=== PATIENT | male | born 1985 | race Two or more races ===

== ENCOUNTER 2018-10-20 22:56 | Emergency (ER) | payer SELFPAY ==
[~2018-10-20] VITALS: Ht 170.2 cm; Wt 81.8 kg
[2018-10-20] MEDS ORDERED: ALBU8HFA IH (23:11)
[2018-10-20] MEDS ORDERED: METF-960 PO (23:11)
[2018-10-20 23:27] LABS: GLUCOSE,POINT OF CARE 98 MG/DL (70-110)
[2018-10-20] MEDS ORDERED: KETOROLAC TROMETHAMINE 30 MG/ML VIAL IVP ONE (23:45)
[2018-10-20 23:51] LABS: BASOPHILS % (AUTO) 0.3 % (0.0-2.0); HEMATOCRIT 41.8 % (41-53); HEMOGLOBIN 13.6 g/dL (13.5-17.5); LYMPHOCYTES # (AUTO) 2.6 K/uL (1.0-4.8); LYMPHOCYTES % (AUTO) 30.5 % (22.0-44.0); MEAN CORPUSCULAR HGB CONC 32.7 G/dL (31.0-37.0); MEAN CORPUSCULAR VOLUME 92 fL (80-100); MONOCYTES # (AUTO) 0.6 K/uL (0.1-1.0); MONOCYTES % (AUTO) 6.4 % (2.0-9.0); NEUTROPHILS # (AUTO) 5.4 K/uL (1.8-7.7); NEUTROPHILS % (AUTO) 61.8 % (40.0-70.0); PLATELET COUNT (AUTO) 174 K/uL (150-450); RED BLOOD CELL COUNT(AUTO) 4.55 MIL/uL (4.50-5.90); RED CELL DISTRIBUTION WIDTH 13.9 % (11.5-14.5)
[2018-10-21 00:02] LABS: ANION GAP 9 mmol/L (8-16); CALCIUM, TOTAL 8.9 mg/dL (8.8-10.5); CARBON DIOXIDE 28 mmol/L (22-29); CHLORIDE 106 mmol/L (98-107); CREATININE 0.84 mg/dL (0.60-1.30); GLOMERULAR FILTR. RATE CALC > 60 mL/min (>60); GLUCOSE,RANDOM 114 mg/dL (70-110); POTASSIUM 4.4 mmol/L (3.5-5.1); SODIUM SERUM 143 mmol/L (136-145); UREA NITROGEN, BLOOD 13 mg/dL (7-18)
[2018-10-21 00:08] LABS: ALANINE AMINOTRANSFERASE 31 U/L (12-78); ALBUMIN 3.9 g/dL (3.4-5.0); ALKALINE PHOSPHATASE 65 U/L (46-116); ASPARTATE AMINOTRANSFERASE 24 U/L (15-37); BILIRUBIN,TOTAL 0.9 mg/dL (0.1-1.0); TOTAL PROTEIN, SERUM 7.1 g/dL (6.4-8.2)
[2018-10-21 00:12] LABS: LACTIC ACID 2.6 mmol/L (0.4-2.0)
[2018-10-21] MEDS ORDERED: SODIUM CHLORIDE 0.9% 1,000 ML IV ONE (00:45)
[2018-10-21] MEDS ORDERED: BARIUM SULFATE 0.1% SUSPENSION 450 ML BOTTLE PO ONE (00:45)
[2018-10-21] MEDS ORDERED: SODIUM CHLORIDE 0.9% 100 ML ONE (00:57)
[2018-10-21] MEDS ORDERED: IOVERSOL 320 MG/ML 100 ML VIAL ONE (00:57)
[2018-10-21] MEDS ORDERED: ONDANSETRON HCL 4 MG/2 ML VIAL IVP ONE (01:15)
[2018-10-21 01:50] VITALS: BP 128/82
== END 2018-10-21 03:24 | disposition home or self-care (01) ==
LOC: EMS 22:59
DX: N50.812 Left testicular pain (principal); J45.909 Unspecified asthma, uncomplicated; E11.9 Type 2 diabetes mellitus without complications; F17.210 Nicotine dependence, cigarettes, uncomplicated; Z79.84 Long term (current) use of oral hypoglycemic drugs
CPT/HCPCS: 36415; 74177; 76870; 80053; 82962; 83605; 85025; 96374; 96375; 99284; J1885; J2405; J7050; Q9967

== ENCOUNTER 2018-10-24 00:11 | Emergency (ER) | payer SELFPAY ==
[~2018-10-24] VITALS: Ht 170.2 cm; Wt 81.8 kg
[~2018-10-24 00:11] MED LIST: ALBU8HFA IH; METF-960 PO
[2018-10-24 01:01] LABS: GLUCOSE,POINT OF CARE 111 MG/DL (70-110)
[2018-10-24 02:57] LABS: APPEARANCE,URINE CLEAR (CLEAR); BILIRUBIN,URINE NEGATIVE (NEGATIVE); GLUCOSE, URINE (UA) NEGATIVE (NEGATIVE); KETONES,URINE NEGATIVE (NEGATIVE); LEUKOCYTE ESTERASE ,URINE NEGATIVE (NEGATIVE); NITRATE,URINE NEGATIVE (NEGATIVE); OCCULT BLOOD,URINE NEGATIVE (NEGATIVE); PH,URINE 6.5 (5.0-8.0); PROTEIN,URINE NEGATIVE (NEGATIVE)
[2018-10-24] MEDS ORDERED: KETOROLAC TROMETHAMINE 30 MG/ML VIAL IM ONE (03:45)
[2018-10-24 04:52] VITALS: BP 128/88
== END 2018-10-24 04:53 | disposition home or self-care (01) ==
LOC: EMS 00:12
DX: I86.1 Scrotal varices (principal); E11.9 Type 2 diabetes mellitus without complications; J45.909 Unspecified asthma, uncomplicated; F17.210 Nicotine dependence, cigarettes, uncomplicated; Z79.84 Long term (current) use of oral hypoglycemic drugs
CPT/HCPCS: 76870; 81003; 82962; 96372; 99284; J1885

== ENCOUNTER 2018-11-01 00:15 | Emergency (ER) | payer SELFPAY ==
[~2018-11-01] VITALS: Ht 170.2 cm; Wt 86.4 kg
[2018-11-01 01:05] LABS: GLUCOSE,POINT OF CARE 96 MG/DL (70-110)
[2018-11-01] MEDS ORDERED: MECLIZINE HCL 25 MG TABLET PO ONE (01:15)
[2018-11-01] MEDS ORDERED: SODIUM CHLORIDE 0.9% 1,000 ML IV ONE ×2 (01:15→02:15)
[2018-11-01 01:33] LABS: BASOPHILS % (AUTO) 0.3 % (0.0-2.0); EOSINOPHILS % (AUTO) 1.1 % (1.0-6.0); HEMATOCRIT 39.8 % (41-53); HEMOGLOBIN 12.9 g/dL (13.5-17.5); LYMPHOCYTES # (AUTO) 3.4 K/uL (1.0-4.8); LYMPHOCYTES % (AUTO) 44.4 % (22.0-44.0); MEAN CORPUSCULAR HEMOGLOBIN 29.4 pg (26.0-34.0); MEAN CORPUSCULAR HGB CONC 32.3 G/dL (31.0-37.0); MEAN CORPUSCULAR VOLUME 91 fL (80-100); MONOCYTES # (AUTO) 0.6 K/uL (0.1-1.0); MONOCYTES % (AUTO) 7.5 % (2.0-9.0); NEUTROPHILS # (AUTO) 3.6 K/uL (1.8-7.7); NEUTROPHILS % (AUTO) 46.7 % (40.0-70.0); PLATELET COUNT (AUTO) 184 K/uL (150-450); RED BLOOD CELL COUNT(AUTO) 4.37 MIL/uL (4.50-5.90)
[2018-11-01 01:43] LABS: ANION GAP 6 mmol/L (8-16); CALCIUM, TOTAL 8.7 mg/dL (8.8-10.5); CARBON DIOXIDE 28 mmol/L (22-29); CHLORIDE 105 mmol/L (98-107); CREATININE 0.93 mg/dL (0.60-1.30); GLOMERULAR FILTR. RATE CALC > 60 mL/min (>60); GLUCOSE,RANDOM 103 mg/dL (70-110); SODIUM SERUM 139 mmol/L (136-145); UREA NITROGEN, BLOOD 18 mg/dL (7-18)
[2018-11-01] MEDS ORDERED: IOVERSOL 350 MG/ML 100 ML VIAL ONE (01:51)
[2018-11-01] MEDS ORDERED: SODIUM CHLORIDE 0.9% 100 ML ONE (01:51)
[2018-11-01 02:08] LABS: ALANINE AMINOTRANSFERASE 19 U/L (12-78); ALBUMIN 3.7 g/dL (3.4-5.0); ALKALINE PHOSPHATASE 72 U/L (46-116); ASPARTATE AMINOTRANSFERASE 17 U/L (15-37); BILIRUBIN,TOTAL 0.7 mg/dL (0.1-1.0); CREATINE KINASE, TOTAL ONLY 111 U/L (39-308); TOTAL PROTEIN, SERUM 6.7 g/dL (6.4-8.2)
[2018-11-01 05:00] VITALS: BP 112/68
== END 2018-11-01 05:45 | disposition home or self-care (01) ==
LOC: EMS 00:17
DX: R42 Dizziness and giddiness (principal); R00.1 Bradycardia, unspecified; E11.9 Type 2 diabetes mellitus without complications; J45.909 Unspecified asthma, uncomplicated; F12.90 Cannabis use, unspecified, uncomplicated; F17.210 Nicotine dependence, cigarettes, uncomplicated; Z79.84 Long term (current) use of oral hypoglycemic drugs
CPT/HCPCS: 36415; 70496; 70498; 80053; 82550; 82962; 84484; 85025; 93005; 96360; 96361; 99284; G0480; J7030; J7050; Q9967